=== PATIENT | male | born 1955 | race Caucasian/White ===

== ENCOUNTER → 2016-11-18 | Outpatient (CLI) | payer MEDICARE | LOC: RAD 11:37 | DX: M25.562 Pain in left knee (principal); M54.2 Cervicalgia; M54.6 Pain in thoracic spine | CPT/HCPCS: 72050; 72072; 73562 ==

== ENCOUNTER 2020-10-30 09:23 | Emergency (ER) | payer MEDICARE, OTHER ==
[~2020-10-30 09:23] MED LIST: ASPIR 8181 MG PO; IMDUR ER TAB 3030 MG PO; LIPITOR40 MG PO; NEURONTIN 300300 MG PO; NITROSTAT 0.40.4 MG SL; NORVASC10 MG PO; ZANAFLEX 4 MG TA4 MG PO; ZESTRIL/PRINIVI10 MG PO
[2020-10-30 10:26] LABS: HEMOGLOBIN 15.8 gm/dl (14.0-17.5); RED BLOOD COUNT 5.07 M/UL (4.20-5.50); WHITE BLOOD COUNT 7.9 K/UL (4.5-11.0)
[2020-10-30 10:50] LABS: BUN/CREATININE RATIO 18 (0-10)
== END 2020-10-30 13:00 | disposition left against medical advice (07) ==
LOC: ER1 09:23
PROVIDERS: Physician Assistant Medical
DX: R42 Dizziness and giddiness (principal); R55 Syncope and collapse; E78.5 Hyperlipidemia, unspecified; I10 Essential (primary) hypertension; Z88.8 Allergy status to other drugs, medicaments and biological substances; Z79.899 Other long term (current) drug therapy
CPT/HCPCS: 70450; 71045; 80053; 81001; 82550; 82553; 82962; 83874; 83880; 84484; 85025; 93005; 99284

== ENCOUNTER → 2020-10-31 | Outpatient (CLI) | payer MEDICARE, OTHER | LOC: HEART 5 10-24 08:30 | DX: I25.10 Atherosclerotic heart disease of native coronary artery without angina pectoris (principal); R07.9 Chest pain, unspecified; I51.7 Cardiomegaly | CPT/HCPCS: 93306 ==

== ENCOUNTER → 2020-11-05 | Outpatient (CLI) | payer MEDICARE, OTHER | LOC: HEART 5 11-04 08:15 | DX: I25.10 Atherosclerotic heart disease of native coronary artery without angina pectoris (principal); R07.9 Chest pain, unspecified; I25.9 Chronic ischemic heart disease, unspecified | CPT/HCPCS: 78452; A9502; J2785 ==

== ENCOUNTER 2020-12-14 08:07 | Emergency (ER) | payer MEDICARE, OTHER | END 2020-12-14 09:30 | disposition home or self-care (01) | LOC: ER1 08:07 | DX: H61.22 Impacted cerumen, left ear (principal); I10 Essential (primary) hypertension | CPT/HCPCS: 69210; 99282 ==

== ENCOUNTER 2021-01-17 16:13 | Inpatient (IN) | payer MEDICARE, OTHER ==
[~2021-01-17] VITALS: Ht 177.8 cm; Wt 127.0 kg
[2021-01-17 17:11] LABS: HEMOGLOBIN 15.4 gm/dl (14.0-17.5)
[2021-01-17 17:39] LABS: BUN/CREATININE RATIO 17 (0-10)
[2021-01-18] MEDS ORDERED: NEURONTIN800 MG PO (00:29)
[2021-01-18 03:37] LABS: HEMOGLOBIN 16.7 gm/dl (14.0-17.5); RED BLOOD COUNT 5.45 M/UL (4.20-5.50)
[2021-01-18 06:36] LABS: BUN/CREATININE RATIO 22 (0-10)
--- NOTE | 2021-01-18 23:40 | NUR ---
pt transfer to [facility] on bipap. per orders handoff to [facility]
--- NOTE | 2021-01-19 01:57 | NUR ---
PATIENT STATES, "I CANT BREATHE AND I FEEL LIKE IM GOING TO ." HE IS SITTING ON THE SIDE OF THE BED AND IS EXTREMELY ANXIOUS. O2 SAT IS 86 ON AIRVO. SWITCHED PATIENT TO BIPAP AND HIS SAT IS 93. HE IS COUGHING ALOT BUT ITS A DRY COUGH AND NONPRODUCTIVE. ATTEMPTED TO REACH DR BELLE FOR SOME ORDERS AND TO NOTIFY HIM OF PATIENTS STATUS.
[2021-01-19 03:08] LABS: HEMOGLOBIN 15.8 gm/dl (14.0-17.5); RED BLOOD COUNT 5.17 M/UL (4.20-5.50)
[2021-01-19 03:44] LABS: WHITE BLOOD COUNT 12.8 K/UL (4.5-11.0)
[2021-01-19 03:48] LABS: BUN/CREATININE RATIO 20 (0-10)
--- NOTE | 2021-01-19 19:43 | NUR ---
PATIENT IS VERY AXIOUS AND STRESSED STATES, " I CANT BREATHE, THIS MACHINE ISNT GIVING ME ANY OXYGEN." O2 SAT IS 92% ON BIPAP. REASSURED AND REDIRECTED PATIENT TO TRY TO CALM HIM. BP 178/115. CALLED AND NOTIFIED DR. LOPES OF PATIENTS CHANGES. STATES HE WILL PLACE ORDERS.
--- NOTE | 2021-01-19 23:37 | NUR ---
PATIENTS BP IS 180/100 AND HE IS COMPLAINING OF A STOPPED UP NOSE. NOTIFIED DR. BELLE.
[2021-01-20 03:20] LABS: HEMOGLOBIN 16.1 gm/dl (14.0-17.5); RED BLOOD COUNT 5.3 M/UL (4.20-5.50); WHITE BLOOD COUNT 13.6 K/UL (4.5-11.0)
[2021-01-20 03:48] LABS: BUN/CREATININE RATIO 20 (0-10)
[2021-01-21 03:27] LABS: HEMOGLOBIN 15.6 gm/dl (14.0-17.5); RED BLOOD COUNT 5.36 M/UL (4.20-5.50); WHITE BLOOD COUNT 16.4 K/UL (4.5-11.0)
[2021-01-21 03:55] LABS: BUN/CREATININE RATIO 27 (0-10)
--- NOTE | 2021-01-21 13:35 | NUR ---
PT GIVEN I/S AND EXPLAINED HOW TO USE AND BENNIFIT OF USE WITH VOICED UNDERSTANDING
--- NOTE | 2021-01-22 01:31 | NUR ---
0030-PATIENT WANTED BIPAP OFF, WHEN BIPAP IS OFF AND AIRVO IS ON SATS IN 80'S. EDUCATED PATIENT ON IMPORTANCE OF WEARING BIPAP AT THIS TIME TO AVOID THE VENTILATOR AND HE SAID THAT THEY COULDN'T PUT HIM ON THAT WITHOUT HIS PERMISSION. SO I EXPLAINED FULLCODE/DNR STATUS TO PATIENT AND HE SAID THAT IF HIS HEART STOPPED OR HE STOPPED BREATHING HE JUST WANTED TO BE LEFT ALONE. I NOTIFIED DR GALEANA AND GOT AN ORDER FOR DNR STATUS FOR PATIENT
[2021-01-22 10:20] LABS: HEMOGLOBIN 16.6 gm/dl (14.0-17.5); RED BLOOD COUNT 5.37 M/UL (4.20-5.50); WHITE BLOOD COUNT 18.4 K/UL (4.5-11.0)
[2021-01-22 10:39] LABS: BUN/CREATININE RATIO 25 (0-10)
[2021-01-23 05:25] LABS: HEMOGLOBIN 15.7 gm/dl (14.0-17.5); RED BLOOD COUNT 5.18 M/UL (4.20-5.50); WHITE BLOOD COUNT 20.4 K/UL (4.5-11.0)
[2021-01-23 05:40] LABS: BUN/CREATININE RATIO 35 (0-10)
[2021-01-24 08:12] LABS: HEMOGLOBIN 16.4 gm/dl (14.0-17.5); RED BLOOD COUNT 5.32 M/UL (4.20-5.50)
[2021-01-24 08:36] LABS: BUN/CREATININE RATIO 32 (0-10)
[2021-01-25 05:24] LABS: HEMOGLOBIN 16.1 gm/dl (14.0-17.5); RED BLOOD COUNT 5.2 M/UL (4.20-5.50); WHITE BLOOD COUNT 25.5 K/UL (4.5-11.0)
[2021-01-25 05:51] LABS: BUN/CREATININE RATIO 41 (0-10)
[2021-01-26 04:35] LABS: HEMOGLOBIN 14.8 gm/dl (14.0-17.5); RED BLOOD COUNT 4.83 M/UL (4.20-5.50); WHITE BLOOD COUNT 21.8 K/UL (4.5-11.0)
[2021-01-26 04:52] LABS: BUN/CREATININE RATIO 45 (0-10)
[2021-01-27 05:03] LABS: HEMOGLOBIN 14.3 gm/dl (14.0-17.5); RED BLOOD COUNT 4.66 M/UL (4.20-5.50); WHITE BLOOD COUNT 20.3 K/UL (4.5-11.0)
[2021-01-27 05:25] LABS: BUN/CREATININE RATIO 68 (0-10)
[2021-01-27 09:40] LABS: HEMOGLOBIN 14.9 gm/dl (14.0-17.5); RED BLOOD COUNT 4.83 M/UL (4.20-5.50); WHITE BLOOD COUNT 21.9 K/UL (4.5-11.0)
[2021-01-27 10:00] LABS: BUN/CREATININE RATIO 73 (0-10)
[2021-01-28 01:49] LABS: HEMOGLOBIN 14.7 gm/dl (14.0-17.5); RED BLOOD COUNT 4.71 M/UL (4.20-5.50); WHITE BLOOD COUNT 22.4 K/UL (4.5-11.0)
[2021-01-28 02:05] LABS: BUN/CREATININE RATIO 78 (0-10)
[2021-01-28 16:02] LABS: HEMOGLOBIN 14.8 gm/dl (14.0-17.5); RED BLOOD COUNT 4.7 M/UL (4.20-5.50); WHITE BLOOD COUNT 24.1 K/UL (4.5-11.0)
[2021-01-29 05:13] LABS: HEMOGLOBIN 13.3 gm/dl (14.0-17.5); RED BLOOD COUNT 4.36 M/UL (4.20-5.50); WHITE BLOOD COUNT 22.7 K/UL (4.5-11.0)
[2021-01-29 05:45] LABS: BUN/CREATININE RATIO 88 (0-10)
--- NOTE | 2021-01-29 18:24 | NUR ---
PTS REYNOSO CATHETER IS NOT DRAINING CORRECTLY, SOME FLUID GOES IN COLLECTION BAG BUT MOST OF THE FLUID GOES AROUND THE CATHETER AND ONTO THE PATIENT, DISPOSABLE CHUCKS IN PLACE AND CHANGED FREQUENTLY TO PREVENT SKIN BREAKDOWN DUE TO MOISTURE. DRAINAGE FROM THE REYNOSO IS BLOODY. DR LOPES HOSPITALIST IS AWARE AND DOES NOT WANT THE REYNOSO REMOVED AT THIS TIME.
[2021-01-30 10:40] LABS: HEMOGLOBIN 14.4 gm/dl (14.0-17.5); RED BLOOD COUNT 4.33 M/UL (4.20-5.50); WHITE BLOOD COUNT 21.4 K/UL (4.5-11.0)
[2021-01-30 11:16] LABS: BUN/CREATININE RATIO 80 (0-10)
[2021-01-30 19:55] LABS: RED BLOOD COUNT 4.27 M/UL (4.20-5.50); WHITE BLOOD COUNT 19.5 K/UL (4.5-11.0)
[2021-01-31 05:21] LABS: RED BLOOD COUNT 4.1 M/UL (4.20-5.50); WHITE BLOOD COUNT 18.7 K/UL (4.5-11.0)
[2021-01-31 05:41] LABS: BUN/CREATININE RATIO 66 (0-10)
[2021-02-02 05:51] LABS: HEMOGLOBIN 12.9 gm/dl (14.0-17.5); RED BLOOD COUNT 4.46 M/UL (4.20-5.50); WHITE BLOOD COUNT 18.7 K/UL (4.5-11.0)
[2021-02-02 06:29] LABS: BUN/CREATININE RATIO 58 (0-10)
[2021-02-03 08:12] LABS: WHITE BLOOD COUNT 15.2 K/UL (4.5-11.0)
[2021-02-03 08:13] LABS: HEMOGLOBIN 10.9 gm/dl (14.0-17.5); RED BLOOD COUNT 3.83 M/UL (4.20-5.50)
[2021-02-03 08:31] LABS: BUN/CREATININE RATIO 54 (0-10)
[2021-02-04 08:32] LABS: HEMOGLOBIN 11.1 gm/dl (14.0-17.5); RED BLOOD COUNT 3.82 M/UL (4.20-5.50)
[2021-02-04 09:18] LABS: BUN/CREATININE RATIO 47 (0-10)
[2021-02-05 05:10] LABS: HEMOGLOBIN 10.8 gm/dl (14.0-17.5); RED BLOOD COUNT 3.7 M/UL (4.20-5.50); WHITE BLOOD COUNT 16.4 K/UL (4.5-11.0)
[2021-02-05 05:38] LABS: BUN/CREATININE RATIO 42 (0-10)
[2021-02-06 07:35] LABS: HEMOGLOBIN 10.2 gm/dl (14.0-17.5); RED BLOOD COUNT 3.48 M/UL (4.20-5.50); WHITE BLOOD COUNT 12.8 K/UL (4.5-11.0)
[2021-02-06 08:55] LABS: BUN/CREATININE RATIO 47 (0-10)
== END 2021-02-06 13:21 | disposition expired | DRG 870 ==
LOC: ER1 16:13 → CCU 18:18 → PROG CARE 18:18 → CDU 18:18 → MED SURG 4 22:26 → PROG CARE 01-18 23:29 → CCU 01-21 15:04
PROVIDERS: Internal Medicine; Internal Medicine Pulmonary Disease; Physician Assistant Medical; ADMIT Internal Medicine Infectious Disease
PROC: 8E0ZXY6 Isolation (ICD-10-PCS; principal; 2021-01-17)
PROC: XW033E5 Introduction of Remdesivir Anti-infective into Peripheral Vein, Percutaneous Approach, New Technology Group 5 (ICD-10-PCS; 2021-01-17)
PROC: 3E0333Z Introduction of Anti-inflammatory into Peripheral Vein, Percutaneous Approach (ICD-10-PCS; 2021-01-17)
PROC: 5A09557 Assistance with Respiratory Ventilation, Greater than 96 Consecutive Hours, Continuous Positive Airway Pressure (ICD-10-PCS; 2021-01-19)
PROC: 0DH67UZ Insertion of Feeding Device into Stomach, Via Natural or Artificial Opening (ICD-10-PCS; 2021-01-19)
PROC: 3E033XZ Introduction of Vasopressor into Peripheral Vein, Percutaneous Approach (ICD-10-PCS; 2021-01-19)
PROC: 3E0336Z Introduction of Nutritional Substance into Peripheral Vein, Percutaneous Approach (ICD-10-PCS; 2021-01-19)
PROC: XW033G5 Introduction of Sarilumab into Peripheral Vein, Percutaneous Approach, New Technology Group 5 (ICD-10-PCS; 2021-01-20)
PROC: 5A1955Z Respiratory Ventilation, Greater than 96 Consecutive Hours (ICD-10-PCS; 2021-01-23)
PROC: 0BH18EZ Insertion of Endotracheal Airway into Trachea, Via Natural or Artificial Opening Endoscopic (ICD-10-PCS; 2021-01-23)
PROC: 05HM33Z Insertion of Infusion Device into Right Internal Jugular Vein, Percutaneous Approach (ICD-10-PCS; 2021-01-23)
DX: A41.89 Other specified sepsis (principal); U07.1 COVID-19; J12.82 Pneumonia due to coronavirus disease 2019; J80 Acute respiratory distress syndrome; R65.21 Severe sepsis with septic shock; Z68.41 Body mass index [BMI] 40.0-44.9, adult; N17.9 Acute kidney failure, unspecified; M62.82 Rhabdomyolysis; R57.8 Other shock; K21.9 Gastro-esophageal reflux disease without esophagitis; I10 Essential (primary) hypertension; I25.10 Atherosclerotic heart disease of native coronary artery without angina pectoris; E78.5 Hyperlipidemia, unspecified; E87.6 Hypokalemia; E11.65 Type 2 diabetes mellitus with hyperglycemia; T38.0X5A Adverse effect of glucocorticoids and synthetic analogues, initial encounter; E66.01 Morbid (severe) obesity due to excess calories; R74.01 Elevation of levels of liver transaminase levels; Z66 Do not resuscitate; E87.5 Hyperkalemia; R31.9 Hematuria, unspecified; Z51.5 Encounter for palliative care; Z79.899 Other long term (current) drug therapy; Z90.89 Acquired absence of other organs; Z95.5 Presence of coronary angioplasty implant and graft; Z88.8 Allergy status to other drugs, medicaments and biological substances; Z79.82 Long term (current) use of aspirin; Z79.52 Long term (current) use of systemic steroids
CPT/HCPCS: 31500; 36415; 36600; 71045; 80048; 80053; 82550; 82553; 82728; 82803; 82962; 83036; 83605; 83615; 83735; 83874; 83880; 84100; 84132; 84443; 84484; 85025; 85027; 85379; 85384; 85610; 85730; 86140; 87081; 93005; 94002; 94003; 94640; 94644; 94660; 94664; 94760; 94761; 96374; 99285; A6212; J0330; J0360; J0456; J1100; J1120; J1205; J1650; J2060; J2185; J2250; J2270; J2704; J3480; J7030; J7050; J7120; U0002